=== PATIENT | male | born 1990 | race Caucasian/White ===

== ENCOUNTER 2017-12-21 17:54 | Inpatient (IN) | payer OTHER ==
[~2017-12-21] VITALS: Ht 182.9 cm; Wt 90.1 kg
[2017-12-21 18:08] VITALS: Ht 182.9 cm; Wt 90.1 kg
[2017-12-21 18:30] LABS: BASOPHIL % 0.4 % (0-2); PLATELET COUNT 378 x10^3mcL (130-400); RED CELL DISTRIBUTION WIDTH 12.8 % (11.5-14.5)
[2017-12-21 18:36] LABS: CALCIUM 9.5 mg/dL (8.5-10.1); CARBON DIOXIDE 20.3 mmol/L (21-32); CREATININE SERUM 2.3 mg/dL (0.7-1.3); POTASSIUM SERUM 3.6 mmol/L (3.5-5.1)
[2017-12-21 20:25] LABS: FREE T4 1.71 ng/dL (0.76-1.46); FREE THYROXINE INDEX 3.3 ug/dL (1.4-4.5); T3 TOTAL 1.69 ng/mL; T4(THYROXINE) 10.3 ug/dL (4.7-13.3)
[2017-12-21 20:26] LABS: MAGNESIUM 1.8 mg/dL (1.8-2.4)
[2017-12-21 20:39] LABS: CHOLESTEROL/HDL RATIO 4.6
[2017-12-21 20:51] LABS: UA SPECIFIC GRAVITY <=1.005 (1.005-1.035); microscopic required? YES; urine erythrocyte TRACE (NEGATIVE)
[2017-12-21 20:52] VITALS: BP 120/76
[2017-12-21 21:05] LABS: AMPHETAMINE QUAL UR NONE DETECTED (See below)
[2017-12-22 05:49] LABS: AMPHETAMINE QUAL UR NONE DETECTED (See below)
[2017-12-22 05:58] VITALS: BP 116/65
[2017-12-22 06:29] LABS: BASOPHIL % 0.4 % (0-2); PLATELET COUNT 217 x10^3mcL (130-400); RED CELL DISTRIBUTION WIDTH 12.8 % (11.5-14.5)
[2017-12-22 06:43] LABS: ALBUMIN 3.5 g/dL (3.4-5.0); ALKALINE PHOSPHATASE 102 U/L (46-116); ALT/SGPT 51 U/L (16-63); AST/SGOT 65 U/L (15-37); BILIRUBIN TOTAL 1.86 mg/dL (0.20-1.00); CALCIUM 8.7 mg/dL (8.5-10.1); CHLORIDE SERUM 105 mmol/L (98-107); CREATININE SERUM 1.3 mg/dL (0.7-1.3); GFR1 > 60 mL/min; GLUCOSE SERUM 78 mg/dL (74-106); MAGNESIUM 2.5 mg/dL (1.8-2.4); PHOSPHOROUS 3.2 mg/dL (2.5-4.9); POTASSIUM SERUM 3.7 mmol/L (3.5-5.1); SODIUM SERUM 142 mmol/L (136-145); TOTAL PROTEIN, SERUM 6.6 g/dL (6.4-8.2)
[2017-12-22 10:00] VITALS: BP 99/58
[2017-12-22 13:34] VITALS: BP 112/64
[2017-12-22 14:14] VITALS: BP 112/64
== END 2017-12-22 14:49 | disposition home or self-care (01) | DRG 52 ==
LOC: ED 17:54 → DU 19:47
PROVIDERS: Emergency Medicine; Family Medicine
DX: G92 Toxic encephalopathy (principal); N17.0 Acute kidney failure with tubular necrosis; F14.129 Cocaine abuse with intoxication, unspecified; E83.39 Other disorders of phosphorus metabolism; E78.5 Hyperlipidemia, unspecified; T40.5X5A Adverse effect of cocaine, initial encounter; Y92.89 Other specified places as the place of occurrence of the external cause; R00.0 Tachycardia, unspecified
CPT/HCPCS: 83880; 84439; J0153; J2060; J3475; J7030; Q0092